=== PATIENT | female | born 1995 | race African-American/Black ===

== ENCOUNTER 2018-10-07 09:04 | Emergency (ER) | payer OTHER ==
[~2018-10-07] VITALS: Ht 165.1 cm; Wt 114.3 kg
[~2018-10-07 09:04] MED LIST: ACET-141 PO
[2018-10-07 09:08] VITALS: BP 143/86; PULSE 76; RESP 18; Ht 165.1 cm; Wt 114.3 kg
[2018-10-07] MEDS ORDERED: ACETAMINOPHEN 325 MG TAB PO ONE (10:00)
== END 2018-10-07 10:58 | disposition home or self-care (01) ==
LOC: FTE 09:04
DX: K08.89 Other specified disorders of teeth and supporting structures (principal); F17.210 Nicotine dependence, cigarettes, uncomplicated
CPT/HCPCS: Z7502; Z7610; 99282